=== PATIENT | female | born 1995 | race Caucasian/White ===

== ENCOUNTER 2017-12-27 22:55 | Emergency (ER) | payer OTHER ==
[2017-12-27] MEDS ORDERED: KETOROLAC 30 MG/ML INJ ONE (23:52)
[2017-12-27] MEDS ORDERED: NA CHLORIDE 0.9% 1,000 ML ONE (23:52)
[2017-12-27] MEDS ORDERED: ONDANSETRON 4 MG/2 ML VIAL ONE (23:52)
[2017-12-28 00:06] LABS: Absolute Lymphocytes (CBC) 3.1 K/uL (0.7-4.9); Absolute Monocytes 0.5 K/uL (0.1-1.3); Absolute Neutrophil 2.5 K/uL (1.8-8.0); Basophils % 0.4 % (0-1.3); Eosinophils % 3.6 % (0-4.4); Hematocrit 38.9 % (36.0-45.0); Lymphocytes % 49.4 % (15.3-44.8); MCH 29.1 pg (27.0-35.0); MCV 86.6 fL (80-100); MPV 8.5 fL (7.6-11.3); Monocytes % 7.5 % (3.3-12.3); RBC Red Blood Cell Count 4.49 M/uL (3.86-4.86)
[2017-12-28 00:12] LABS: Potassium 3.3 mEq/L (3.6-5.0)
[2017-12-28 00:19] LABS: Bilirubin Direct 0.1 mg/dL (0-0.2); Bilirubin Total 0.2 mg/dL (0.3-1.2)
[2017-12-28 00:37] LABS: Albumin 3.8 g/dL (3.2-5.5)
[2017-12-28 00:44] LABS: Urine Blood NEGATIVE (NEG); Urine Glucose NEGATIVE (NEG); Urine Protein NEGATIVE (NEG); Urine Specific Gravity 1.015 (1.005-1.030)
[2017-12-28 01:07] LABS: Urine Culture Reflex Order NOT NEEDED
[2017-12-28 01:08] LABS: Urine Bacteria <20 /HPF (<20); Urine RBC <5 /HPF (NONE SEEN)
--- NOTE | 2017-12-28 01:18 | ER ---
Nurse's Notes [facility] Name: Maday Davis Age: 22 yrs Sex: Female : 1995 Arrival Date: 12/27/2017 Time: 23:00 Bed 7 Private MD: None, None Diagnosis: Abdominal tenderness;Headache;Nausea Presentation: 12/27 23:09 Presenting complaint: Patient states: that for the past 3 days she has been having fc right sided abd. pain with nausea. Also having headache for the past 2 days. Transition of care: patient was not received from another setting of care. Onset of symptoms was December 24, 2017. Initial Sepsis Screen: Does the patient meet any 2 criteria? No. Patient's initial sepsis screen is negative. Does the patient have a suspected source of infection? No. Patient's initial sepsis screen is negative. Care prior to arrival: None. 23:09 Method Of Arrival: Ambulatory 23:09 Acuity: BLAINE 3 Triage Assessment: 12/28 00:00 GI: Reports nausea. 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 - Social history:: Smoking status: Patient/guardian denies using tobacco, Patient/guardian denies using alcohol, street drugs. - Family history:: not pertinent. Screenin:12 Abuse screen: Denies threats or abuse. Nutritional screening: No deficits noted. fc Tuberculosis screening: No symptoms or risk factors identified. Fall Risk None identified. Assessment: 23:10 General: Appears in no apparent distress. comfortable, obese, Behavior is calm, bp cooperative, appropriate for age. Pain: Complains of pain in anterior aspect of right lateral abdomen. Neuro: Level of Consciousness is awake, alert, obeys commands, Oriented to person, place, time, situation. Cardiovascular: No deficits noted. Respiratory: Airway is patent Respiratory effort is even, unlabored, Respiratory pattern is regular, symmetrical. GI: Abdomen is non-distended, obese. : No deficits noted. EENT: No deficits noted. Derm: No deficits noted. Musculoskeletal: Circulation, motion, and sensation intact. Range of motion: intact in all extremities. 12/28 00:00 Reassessment: CT PENDING, VS STABLE ON MONITOR. bp 01:00 Reassessment: ALL CURRENT ORDERS COMPLETED, CT RESULTS PENDING. bp 01:36 Reassessment: PT D/C HOME AMBULATORY, DX WITH NONSPECIFIC ABD PAIN. bp Vital Signs: 12/27 23:11 BP 137 / 88; Pulse 84; Resp 18; Temp 97.5(O); Pulse Ox 99% on R/A; Weight 97.52 kg (R); fc Height 5 ft. 4 in. (162.56 cm) (R); Pain 3/10; 12/28 01:00 BP 114 / 75; Pulse 76; Resp 16; Pulse Ox 96% ; bp 12/27 23:11 Body Mass Index 36.90 (97.52 kg, 162.56 cm) fc ED Course: 12/27 23:00 Patient arrived in ED. ds1 23:00 None, None is Private Physician. ds1 23:10 Triage completed. fc 23:11 Arm band placed on Patient placed in an exam room, on a stretcher. fc 23:12 Patient has correct armband on for positive identification. Bed in low position. Call light in reach. 23:13 Antelmo Barrios, CORY is Primary Nurse. bp 23:29 Tam Feliz MD is Attending Physician. klever 23:46 Inserted saline lock: 20 gauge in right forearm, using aseptic technique. Blood bp collected. 12/28 00:36 CT Stone Protocol In Process Unspecified. EDMS 01:37 No provider procedures requiring assistance completed. IV discontinued, intact, bp bleeding controlled, No redness/swelling at site. Pressure dressing applied. Administered Medications: 12/27 23:55 Drug: NS 0.9% 1000 ml Route: IV; Rate: 1 bolus; Site: right forearm; bp 23:56 Drug: TORadol 30 mg Route: IVP; Site: right forearm; bp 12/28 00:00 Follow up: Response: Pain is decreased bp 12/27 23:56 Drug: Zofran 4 mg Route: IVP; Site: right forearm; bp 12/28 00:00 Follow up: Response: Nausea is decreased bp 01:36 Drug: Potassium Chloride 20 mEq Route: PO; bp 01:36 Follow up: Response: Medication administered at discharge. bp Outcome: 01:17 Discharge ordered by . klever 01:37 Discharged to home ambulatory, with family. bp 01:37 Condition: stable 01:37 Discharge instructions given to patient, Instructed on discharge instructions, follow up and referral plans. medication usage, Demonstrated understanding of instructions, follow-up care, medications, Prescriptions given X 1. 01:38 Patient left the ED. bp Signatures: Dispatcher [employer] EDSC Tam Feliz MD MD cha Chretien, Felicia, RN RN Melisa Regalado ds1 Antelmo Barrios, RN RN bp
--- NOTE | 2017-12-28 01:18 | EDPHYS ---
Physician Documentation [facility] Name: Maday Davis Age: 22 yrs Sex: Female : 1995 Arrival Date: 12/27/2017 Time: 23:00 Bed 7 Private MD: None, None ED Physician Tam Feliz HPI: 12/28 00:48 This 22 yrs old Female presents to ER via Ambulatory with complaints of klever Nausea, Side Pain, Headache. 00:48 The patient presents to the emergency department with nausea, abdominal pain, of the klever right lower quadrant. Onset: The symptoms/episode began/occurred 3 day(s) ago. Possible causes: unknown. The symptoms are aggravated by nothing. The symptoms are alleviated by nothing. Associated signs and symptoms: The patient has no apparent associated signs or symptoms. Severity of symptoms: At their worst the symptoms were mild moderate in the emergency department the symptoms are unchanged. The patient has not experienced similar symptoms in the past. 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 - Social history:: Smoking status: Patient/guardian denies using tobacco, Patient/guardian denies using alcohol, street drugs. - Family history:: not pertinent. ROS: 12/28 00:48 Constitutional: Negative for fever, chills, and weight loss, Eyes: Negative for injury, klever pain, redness, and discharge, ENT: Negative for injury, pain, and discharge, Neck: Negative for injury, pain, and swelling, Cardiovascular: Negative for chest pain, palpitations, and edema, Respiratory: Negative for shortness of breath, cough, wheezing, and pleuritic chest pain, Back: Negative for injury and pain, : Negative for injury, bleeding, discharge, and swelling, MS/Extremity: Negative for injury and deformity, Skin: Negative for injury, rash, and discoloration, Neuro: Negative for headache, weakness, numbness, tingling, and seizure, Psych: Negative for depression, anxiety, suicide ideation, homicidal ideation, and hallucinations, Allergy/Immunology: Negative for hives, rash, and allergies, Endocrine: Negative for neck swelling, polydipsia, polyuria, polyphagia, and marked weight changes. Abdomen/GI: Positive for abdominal pain, of the right lower quadrant. Exam: 00:48 Constitutional: This is a well developed, well nourished patient who is awake, alert, klever and in no acute distress. Head/Face: Normocephalic, atraumatic. Eyes: Pupils equal round and reactive to light, extra-ocular motions intact. Lids and lashes normal. Conjunctiva and sclera are non-icteric and not injected. Cornea within normal limits. Periorbital areas with no swelling, redness, or edema. ENT: Nares patent. No nasal discharge, no septal abnormalities noted. Tympanic membranes are normal and external auditory canals are clear. Oropharynx with no redness, swelling, or masses, exudates, or evidence of obstruction, uvula midline. Mucous membranes moist. Neck: Trachea midline, no thyromegaly or masses palpated, and no cervical lymphadenopathy. Supple, full range of motion without nuchal rigidity, or vertebral point tenderness. No Meningismus. Chest/axilla: Normal chest wall appearance and motion. Nontender with no deformity. No lesions are appreciated. Cardiovascular: Regular rate and rhythm with a normal S1 and S2. No gallops, murmurs, or rubs. Normal PMI, no JVD. No pulse deficits. Respiratory: Lungs have equal breath sounds bilaterally, clear to auscultation and percussion. No rales, rhonchi or wheezes noted. No increased work of breathing, no retractions or nasal flaring. Back: No spinal tenderness. No costovertebral tenderness. Full range of motion. Skin: Warm, dry with normal turgor. Normal color with no rashes, no lesions, and no evidence of cellulitis. MS/ Extremity: Pulses equal, no cyanosis. Neurovascular intact. Full, normal range of motion. Neuro: Awake and alert, GCS 15, oriented to person, place, time, and situation. Cranial nerves II-XII grossly intact. Motor strength 5/5 in all extremities. Sensory grossly intact. Cerebellar exam normal. Normal gait. Psych: Awake, alert, with orientation to person, place and time. Behavior, mood, and affect are within normal limits. 00:48 Abdomen/GI: Inspection: abdomen appears normal, Bowel sounds: normal, Palpation: mild abdominal tenderness, in the right lower quadrant. Vital Signs: 12/27 23:11 BP 137 / 88; Pulse 84; Resp 18; Temp 97.5(O); Pulse Ox 99% on R/A; Weight 97.52 kg (R); fc Height 5 ft. 4 in. (162.56 cm) (R); Pain 3/10; 12/28 01:00 BP 114 / 75; Pulse 76; Resp 16; Pulse Ox 96% ; bp 12/27 23:11 Body Mass Index 36.90 (97.52 kg, 162.56 cm) fc MDM: 12/27 23:29 Patient medically screened. [facility] 12/28 00:51 Data reviewed: vital signs, nurses notes, lab test result(s), radiologic studies, CT klever scan. 12/27 23:30 Order name: Urine Dipstick--Ancillary (enter results); Complete Time: 00:50 12/27 23:30 Order name: Urine --Ancillary (enter results); Complete Time: 00:50 12/27 23:30 Order name: Amylase, Serum; Complete Time: 00:50 [facility] 12/27 23:30 Order name: Basic Metabolic Panel; Complete Time: 00:50 [facility] 12/27 23:30 Order name: CBC with Diff; Complete Time: 00:50 [facility] 12/27 23:30 Order name: Creatinine for Radiology; Complete Time: 00:50 [facility] 12/27 23:30 Order name: Hepatic Function; Complete Time: 00:50 [facility] 12/27 23:30 Order name: Lipase; Complete Time: 00:50 [facility] 12/27 23:30 Order name: Urine Microscopic Only; Complete Time: 01:13 [facility] 12/27 23:30 Order name: CT Stone Protocol [facility] 12/27 23:30 Order name: Urine Culture [facility] 12/27 23:30 Order name: Urine Test (obtain specimen); Complete Time: 00:00 [facility] 12/27 23:30 Order name: IV Saline Lock; Complete Time: 00:00 [facility] 12/27 23:30 Order name: Labs collected and sent; Complete Time: 00:00 [facility] 12/27 23:30 Order name: Urine Dipstick-Ancillary (obtain specimen); Complete Time: 00:00 [facility] Administered Medications: 12/27 23:55 Drug: NS 0.9% 1000 ml Route: IV; Rate: 1 bolus; Site: right forearm; bp 23:56 Drug: TORadol 30 mg Route: IVP; Site: right forearm; bp 12/28 00:00 Follow up: Response: Pain is decreased bp 12/27 23:56 Drug: Zofran 4 mg Route: IVP; Site: right forearm; bp 12/28 00:00 Follow up: Response: Nausea is decreased bp 01:36 Drug: Potassium Chloride 20 mEq Route: PO; bp 01:36 Follow up: Response: Medication administered at discharge. bp Disposition: 12/28/17 01:17 Discharged to Home. Impression: Abdominal tenderness, Headache, Nausea. - Condition is Stable. - Discharge Instructions: Abdominal Pain, Adult, General Headache Without Cause, Nausea and Vomiting, Abdominal Pain, Adult, [id number], General Headache Without Cause, [id number], Nausea, Adult, [id number]. - Prescriptions for Zofran 4 mg Oral Tablet - take 1 tablet by ORAL route every 12 hours As needed; 14 tablet. - Medication Reconciliation Form, Thank You Letter, Antibiotic Education, Prescription Opioid Use form. - Follow up: Private Physician; When: 2 - 3 days; Reason: Recheck today's complaints, Re-evaluation by your physician. - Problem is new. - Symptoms have improved. Signatures: Dispatcher [employer] EDMT Tam Feliz MD MD cha Chretien, Felicia, RN RN Antelmo Barrios RN RN bp Corrections: (The following items were deleted from the chart) 01:38 01:17 12/28/2017 01:17 Discharged to Home. Impression: Abdominal tenderness; Headache; bp Nausea. Condition is Stable. Forms are Medication Reconciliation Form, Thank You Letter, Antibiotic Education, Prescription Opioid Use. Follow up: Private Physician; When: 2 - 3 days; Reason: Recheck today's complaints, Re-evaluation by your physician. Problem is new. Symptoms have improved. klever
[2017-12-28] MEDS ORDERED: POTASSIUM CL SA 10 MEQ TAB PO ONE (01:32)
--- NOTE | 2017-12-28 08:10 | RAD REPORT ---
EXAM DESCRIPTION: CT - Stone Protocol - 12/28/2017 6:37 am CLINICAL HISTORY: Abdominal pain. Right flank pain. Surgery 1-6 months COMPARISON: None. TECHNIQUE: Computed axial tomography of the abdomen pelvis was obtained without oral or IV contrast. Lack of IV and oral contrast limits evaluation of solid organs, bowel, and vessels. Coronal reformat ana images were obtained and reviewed. A preliminary report was generated by [employer] and reviewed prior to this dictation All CT scans are performed using dose optimization technique as appropriate and may include automated exposure control or mA/KV adjustment according to patient size. FINDINGS: A renal calculus is not seen. An ureteral calculus is not noted. A bladder calculus is not present. The liver, spleen, pancreas and adrenals appear grossly normal There is no evidence of diverticulitis. The appendix appears normal IMPRESSION: Negative for a genitourinary calculus
== END 2017-12-28 01:38 | disposition home or self-care (01) ==
LOC: ER 22:55
DX: R10.819 Abdominal tenderness, unspecified site (principal); R51 Headache
CPT/HCPCS: 36415; 74176; 76377; 80048; 80076; 81003; 81015; 81025; 82150; 83690; 85025; 87086; 87088; 96374; 96375; 99284; J2405; J7030